=== PATIENT | male | born 1990 | race Caucasian/White ===

== ENCOUNTER → 2018-08-05 13:29 | Outpatient (CLI) | payer SELFPAY ==
[2018-08-03 11:43] VITALS: BMI 31.2
--- NOTE | 2018-08-05 13:37 | US_ITS ---
STUDY: SCROTUM ULTRASOUND REASON FOR EXAM: Male, 28 years old. Pea size left testicular mass. TECHNIQUE: Ultrasound evaluation of the scrotum was performed with color Doppler and static tse-scale imaging. COMPARISON: None. FINDINGS: RIGHT TESTICLE INTRATESTICULAR: There is a normal size of the right testicle. The right testicle measures 5 x 2.9 x 1.9 cm. There is a homogenous echotexture. There is normal arterial and normal venous vascularity. There is no demonstrated right testicular mass or cyst. EXTRATESTICULAR: The epididymis is normal in size. The epididymis head measures 2.6 x 1.2 x 1.1 cm. There is normal vascularity of the epididymis. There is a 0.4 x 0.3 x 0.3 cm epididymal head cyst. There is a small hydrocele. There is no demonstrated varicocele. There is no demonstrated extratesticular mass or cyst. LEFT TESTICLE INTRATESTICULAR: There is a normal size of the left testicle. The left testicle measures 4.6 x 3.1 x 2.2 cm. There is a homogenous echotexture. There is normal arterial and normal venous vascularity. There is no demonstrated left testicular mass or cyst. EXTRATESTICULAR: The epididymis is mildly prominent The epididymis head measures 1.3 x 1.5 x 1.3 cm. There is normal vascularity of the epididymis. There are 2 epididymal head cysts. One measures 4 x 4 x 3 mm. The other measures 2 x 3 x 3 mm. The patient states the palpable lump correlates to the left epididymal cysts. There is a small hydrocele. There is no demonstrated varicocele. There is no demonstrated extratesticular mass or cyst. US/Testicular with Arterial Flow IMPRESSION: 1. Slightly prominent left epididymis containing 2 epididymal head cysts. The epididymis is otherwise unremarkable. This area correlates with the palpable mass described by the patient. 2. Small right epididymal head cysts. 3. Small bilateral hydroceles. 4. Normal testicles. Electronically Signed: Jules Mcdaniel DO at 16:31 EST Tel [phone], Service support ,
--- OUTSIDE RECORDS SUMMARY | 2018-10-07 12:32 | XMS RPT_ITS ---
:1990 Author Organization OHIP Care Team Providers Name Role Phone Aaron Perez Attending Unavailable Primay Care Physicia, No Referring Unavailable Krystyna Parr Attending Unavailable Krystyna Parr Referring Unavailable Primay Care Physicia, No Primary Care Unavailable PROBLEMS PROBLEMS DATE TYPE CONDITION / CODE ATTENDING STATUS SOURCE 08/03/2018 Unknown J45.20 - Mild Aaron Perez Active Loan intermittent [facility] asthma, Hospital uncomplicated / Repository J45.20(ICD-10) 08/03/2018 Unknown N50.9 - Disorder of ChrisAaron Active Loan male genital Community organs, unspecified Hospital / N50.9(ICD-10) Repository PROCEDURES PROCEDURES No Procedure Records FoundRESULTS RESULTS TESTICULAR WITH Observed: 08/05/2018 Status: F Source: BERRY ARTERIAL FLOW 1:37 PM [facility] REPOSITORY [facility] Imaging Services [address] [place] [address] Testicular with Arterial Flow MR#: [id number] Acct: [id number] Name: SARANYA PARRA Rep #: [id number] : 1990 M 28 From: Jules Mcdaniel DO PCP: Care Physician, No Primary Status: REG CLI Study: Testicular with Arterial Flow Date of Exam: 08/05/18 Exam# [id number] Ordering Dr: Krystyna Parr TIMBER PACKER-C STUDY: SCROTUM ULTRASOUND REASON FOR EXAM: Male, 28 years old. Pea size left testicular mass. TECHNIQUE: Ultrasound evaluation of the scrotum was performed with color Doppler and static tse-scale imaging. COMPARISON: None. FINDINGS: RIGHT TESTICLE INTRATESTICULAR: There is a normal size of the right testicle. The right testicle measures 5 x 2.9 x 1.9 cm. There is a homogenous echotexture. There is normal arterial and normal venous vascularity. There is no demonstrated right testicular mass or cyst. EXTRATESTICULAR: The epididymis is normal in size. The epididymis head measures 2.6 x 1.2 x 1.1 cm. There is normal vascularity of the epididymis. There is a 0.4 x 0.3 x 0.3 cm epididymal head cyst. There is a small hydrocele. There is no demonstrated varicocele. There is no demonstrated extratesticular mass or cyst. LEFT TESTICLE INTRATESTICULAR: There is a normal size of the left testicle. The left testicle measures 4.6 x 3.1 x 2.2 cm. There is a homogenous echotexture. There is normal arterial and normal venous vascularity. There is no demonstrated left testicular mass or cyst. EXTRATESTICULAR: The epididymis is mildly prominent The epididymis head measures 1.3 x 1.5 x 1.3 cm. There is normal vascularity of the epididymis. There are 2 epididymal head cysts. One measures 4 x 4 x 3 mm. The other measures 2 x 3 x 3 mm. The patient states the palpable lump correlates to the left epididymal cysts. There is a small hydrocele. There is no demonstrated varicocele. There is no demonstrated extratesticular mass or cyst. US/Testicular with Arterial Flow IMPRESSION: 1. Slightly prominent left epididymis containing 2 epididymal head cysts. The epididymis is otherwise unremarkable. This area correlates with the palpable mass described by the patient. 2. Small right epididymal head cysts. 3. Small bilateral hydroceles. 4. Normal testicles. Electronically Signed: Jules Mcdaniel DO at 16:31 EST Tel [phone], Service support , CC: No Primary Care Physician; Krystyna Parr TIMBER PACKER Deputy City Clerk: Signed URGENT CARE VISIT Observed: 08/03/2018 Status: F Source: BERRY REPORT 1:59 PM [facility] REPOSITORY [facility] [address] [place] [address] [address] [place] [address] OFFICE VISIT Date of Service: 08/03/18 MR#: [id number] Acct: [id number] Name: SARANYA PARRA Rep #: [id number] : 1990 Provider: Aaron OLSON Age/Sex: 28/M Location: [facility] Status: Signed Intake Vital Signs08/03/18 Height 6 ft 4 in Intake Visit Reasons: NEEDS REFERRAL FOR UROLOGIST Certified Flex Endoscope Reprocessor Required: No Accompanied by: self Is patient in pain?: No Allergies No Known Allergies Allergy (Unverified 08/03/18 11:44) Medications albuterol sulfate HFA 90 mcg/actuation aerosol inhaler 1 puff INHALATION Q6H PRN 08/03/18 [History Confirmed 08/03/18] albuterol sulfate HFA 90 mcg/actuation aerosol inhaler 1 puff INHALATION Q6H PRN #18 g 08/03/18 [Rx Confirmed 08/03/18] PFSH Medical History Asthma (Acute) Surgical History History of shoulder surgery (Acute) Social History Smoking Status: Never smoker alcohol intake: current details: occasional HPI HPI Details: SARANYA PARRA, is a 28 M who presents to the office today for 2 separate concerns. The first of which patient is requesting a refill of his albuterol as he is running out and just recently moved to this area and does not have a PCP. He reports a history of well-controlled intermittent asthma and states that he has used his inhaler less than once per week in the past month. He denies any shortness of breath, difficulty breathing or chest pain at this time. He has had no fever, chills, sweats. His secondary concern is for a request to have a referral to urology as he is concerned for a left testicular lump for the last 2 weeks with minimal pain primarily to touch. He denies any previous injuries. He denies any hematuria, dysuria, difficulty urinating or penile drainage. No other associated symptoms or alleviating/aggravating factors. ROS Const Constitutional: No chills, fever(s), fatigue or abnormal sleep pattern Resp Respiratory: No shortness of breath or chest congestion Cardio Cardiology: No chest pain at rest, chest pain with exertion or shortness of breath Genitourinary Male: Positive for testicle lump (Left) and testicle pain (Pain only to palpation); no difficulty urinating, painful urination, blood in semen or scrotal swelling Skin Skin: No wounds or lesions Neuro Neurology: No behavioral changes or confusion Psych Psychiatric: No behavioral changes, No confusion, No abnormal sleep pattern Endo Endocrine: No fatigue Exam Const General: cooperative, healthy appearing [facility] Head: normocephalic, atraumatic Ears: hearing grossly normal bilaterally Nose: external nose normal Face and sinus: face symmetric, normal facial exam Mouth: oral mucosae normal Throat: posterior oropharynx normal Resp Effort AND Inspection: normal respiratory effort Auscultation: Bilateral: Clear to Auscultation Cardio Palpation: normal PMI Rate: regular rate Rhythm: regular rhythm General: bimanual renal exam normal bilaterally, No CVA tenderness External: other (Exam deferred at patient's request.) Skin General: no rashes or lesions noted Neuro General: alert, CN's II-XI intact bilaterally Psych Appearance: grossly normal Mental Status: mental status grossly normal Assessment AND Plan Problems 1. Lump in the testicle N50.9 Status Acute 2. Intermittent asthma, well controlled J45.20 Status Acute Plan Refill the patient's albuterol inhaler and advised him to follow-up with [facility] internal medicine. Patient given information for contact as well as pamphlet for [facility] for follow-up which should be scheduled in the next week. Patient also given referral to posterior urology for scrotal lump. Patient has been advised of potential red flags and when appropriate to report to the ED. Patient verbalized understanding and agreement with all the above. Orders Referrals: Medications New: albuterol sulfate HFA 90 mcg/actuation 1 puff Inhalation Q6H PRN 18 grams 0RF [id number] hospasm Coding Level of Care Code Off vis,new,level 3 Diagnoses Lump in the testicle N50.9 Intermittent asthma, well controlled J45.20 08/03/18 5147 <Electronically signed by Aaron OLSON> Date Aaron Childsaubrey Signature: Date (if applicable) CC: ALLERGIES ALLERGIES DATE TYPE / CODE NAME / CODE REACTION SEVERITY SOURCE 08/03/2018 Drug No Known Unknown [place] [facility] Allergy/4160 Allergies/F00 [facility] [address](SNOMED [id number](RXNOR Repository CT) M) ENCOUNTERS ENCOUNTERS ADMIT/DISCHARGE ACCOUNT ADMITTING ENCOUNTER LOCATION SOURCE NUMBER CLASS 08/05/2018 [id number] Ambulatory Loan Loan 9 [facility] ing:[place] Repository 08/03/2018/ [id number] Ambulatory BMSBuilding:B [place] 9 5 [facility] Repository PAYERS PAYERS ENCOUNTER GUARANTOR PAYER SUBSCRIBER SOURCE 08/05/2018 SARANYA Jones Primary Insurance:[facility] SARANYA [place] [id number] PACKAGE PLANPolicy [place] [facility] [id number] [id number] Repository [address]Zdk: (330) Date:2018-08-04 [phone] () 08/05/2018 Secondary NOT GIVENUNK [place] Insurance:SELF PAY [facility] Number: Effective Repository Date:2018-08-04 08/03/2018 SARANYA [id number] Primary NOT GIVENUNK [place] Insurance:SELF PAY [facility] [address]Nxi: (330) Number: Effective Repository [phone] () Date:2018-08-03
== END ==
PROVIDERS: Referring Provider Nurse Practitioner Adult Health; Visit Provider Nurse Practitioner Adult Health
DX: N50.89 Other specified disorders of the male genital organs (principal)
CPT/HCPCS: 76870; 93976

== ENCOUNTER → 2019-03-10 12:00 | Outpatient (CLI) | payer SELFPAY ==
[2018-08-03 11:43] VITALS: BMI 31.2
[2019-03-10 14:16] LABS: Erythrocyte Sedimentation Rate < 1 mm/hr (0-15)
[2019-03-10 14:17] LABS: Hematocrit 46.3 % (40-54); Hemoglobin 15.7 g/dL (13.0-16.5); Mean Corp Hgb Conc 33.9 g/dL (32-36); Mean Corpuscular Hgb 30.6 pg (27.0-32.0); Mean Corpuscular Volume 90.3 fL (80-94); Platelet Count 222 K/mm3 (150-450); RBC Distribution Width CV 11.9 % (11.6-14.6); RBC Distribution Width SD 39.4 fl (35.1-43.9); Red Blood Count 5.13 M/mm3 (4.6-6.2); White Blood Count 6.5 K/mm3 (4.4-11.0)
[2019-03-10 14:35] LABS: ALB/GLOB Ratio 1.1 RATIO (0.9-2.4); AST(SGOT) 19 U/L (15-37); Alanine Aminotransfer ALT/SGPT 29 U/L (16-61); Alkaline Phosphatase 63 U/L (45-117); Anion Gap 4 (5-15); BUN 15 mg/dL (7-18); BUN/Creat Ratio 15.2 RATIO (10-20); Calcium,Total 9.4 mg/dL (8.5-10.1); Chloride 105 mmol/L (98-107); Creatinine, Serum 0.99 mg/dL (0.70-1.30); EST Glomerular Filtration Rate 96 mL/min (>60); Est Glom Filt Rate - Afr Amer 116 mL/min (>60); Globulin 3.6 g/dL (2.2-4.2); Glucose 81 mg/dL (74-106); Protein, Total 7.6 g/dL (6.4-8.2); Sodium Level 139 mmol/L (136-145)
== END ==
PROVIDERS: Referring Provider Internal Medicine Gastroenterology; Visit Provider Internal Medicine Gastroenterology
DX: R19.7 Diarrhea, unspecified (principal)
CPT/HCPCS: 36415; 80053; 85027; 85652

== ENCOUNTER → 2020-05-30 15:07 | Outpatient (CLI) | payer MEDICARE, SELFPAY ==
[2020-05-30 13:26] VITALS: BMI 32.8
== END ==
PROVIDERS: Visit Provider Physician Assistant Surgical
DX: Z20.828 Contact with and (suspected) exposure to other viral communicable diseases (principal)
CPT/HCPCS: 87635; U0003

== ENCOUNTER → 2023-09-15 | Outpatient (CLI) | payer OTHER, SELFPAY ==
[2023-09-15 10:12] LABS: Absolute Neutrophil Count 3.1 X10^3/uL (2.0-7.7); Basophil# 0.03 X10^3/uL; Basophil% 0.5 % (0-1); Eosinophil# 0.17 X10^3/uL; Eosinophils% 3.1 % (0-5); Hematocrit 45.1 % (40-54); Hemoglobin 15.8 g/dL (13.0-16.5); Lymphocyte % 32.9 % (19-41); Mean Corpuscular Hgb 30.4 pg (27.0-32.0); Mean Corpuscular Volume 86.9 fL (80-94); Mean Platelet Vol. 10.5 fl (6.2-12.0); Monocyte% 7.3 % (0-10); NRBC Flagged by Analyzer 0 % (0-5); Neutrophil # 3.05 X10^3/uL (2.7-7.7); Neutrophil % 55.8 % (47-70); Platelet Count 229 K/mm3 (150-450); RBC Distribution Width CV 11.9 % (11.6-14.6); Red Blood Count 5.19 M/mm3 (4.6-6.2); White Blood Count 5.5 K/mm3 (4.4-11.0)
[2023-09-15 10:43] LABS: Hemoglobin A1c 5.3 % (3.8-5.6)
[2023-09-15 10:46] LABS: ALB/GLOB Ratio 1.1 RATIO (0.9-2.4); AST(SGOT) 24 U/L (15-37); Alanine Aminotransfer ALT/SGPT 32 U/L (16-61); Albumin, Serum 3.9 g/dL (3.2-5.0); Alkaline Phosphatase 56 U/L (45-117); Anion Gap 5 (5-15); BUN 19 mg/dL (7-18); Calcium,Total 9.1 mg/dL (8.5-10.1); Chloride 104 mmol/L (98-107); Cholesterol 156 mg/dL (200); EST Glomerular Filtration Rate 92 mL/min (>60); Est Glom Filt Rate - Afr Amer 112 mL/min (>60); Free T3 2.6 pg/mL (2.18-3.98); Globulin 3.4 g/dL (2.2-4.2); Glucose 100 mg/dL (74-106); High Density Lipoprotein 54 mg/dL; Potassium 4.4 mmol/L (3.5-5.1); Protein, Total 7.3 g/dL (6.4-8.2); Sodium Level 135 mmol/L (136-145); T4 Free Direct 0.97 ng/dL (0.76-1.46); Thyroid Stim Hormone (TSH) 1.34 uIU/mL (0.358-3.74); Triglycerides 74 mg/dL; Very Low Density Lipoprotein 15 mg/dL (5-40)
== END | disposition home or self-care (01) ==
LOC: LAB 09:45
PROVIDERS: PCP Internal Medicine; Referring Provider Internal Medicine; Visit Provider Internal Medicine
DX: Z00.00 Encounter for general adult medical examination without abnormal findings (principal); E55.9 Vitamin D deficiency, unspecified; F41.9 Anxiety disorder, unspecified; R73.9 Hyperglycemia, unspecified; Z13.220 Encounter for screening for lipoid disorders
CPT/HCPCS: 36415; 80053; 80061; 82306; 83036; 84439; 84443; 84481; 85025

== ENCOUNTER → 2023-10-31 | Outpatient (CLI) | payer OTHER, SELFPAY | END | disposition home or self-care (01) | LOC: SL 10:13 | PROVIDERS: PCP Internal Medicine; Referring Provider Internal Medicine; Visit Provider Internal Medicine | DX: G47.30 Sleep apnea, unspecified (principal) | CPT/HCPCS: 95806 ==

== ENCOUNTER → 2025-02-02 | Outpatient (CLI) | payer OTHER, SELFPAY ==
--- NOTE | 2025-02-02 10:43 | RAD_ITS ---
PROCEDURE: ELBOW MIN 3 VIEWS 02/02/2025 REASON FOR EXAM: PAIN TECHNIQUE: ELBOW MIN 3 VIEWS COMPARISON: None FINDINGS: Bones: There is no fracture or dislocation. Benign-appearing enthesophytes are noted at the triceps insertion at the olecranon. There is no visible effusion. Joints: Joint surfaces appear intact. Soft tissues: There is no focal soft tissue swelling. RAD/Elbow min 3 Views IMPRESSION: There is no fracture or dislocation. Benign-appearing enthesophytes are noted at the triceps insertion at the olecra non. Reading Location: [facility]
--- OUTSIDE RECORDS SUMMARY | 2025-02-02 19:20 | XMS RPT_ITS | CCD ---
Author Organization [facility] Informpending sale to [facility] Care Team Providers Care Rides Attendant Name Role Phone Dr. Vane Adams Primary Care Provider Dr. Vane Adams Attending Provider Theresa Fragoso Attending Unavailable Vane Adams Primary Care Unavailable Laverne [employer], Yuliya Attending Unavailable Vane Adams Primary Care Unavailable Vane Adams Referring Unavailable Theresa Fragoso Attending Unavailable Vane Adams Primary Care Unavailable Natan Fragosodison Attending Unavailable Vane Adams Primary Care Unavailable Fragoso Theresa Attending Unavailable Vane Adams Primary Care Unavailable Fouzia Theresa Attending Unavailable Vane Adams Primary Care Unavailable Fouzia Theresa Attending Unavailable Vane Adams Primary Care Unavailable Natan Fragosodison Attending Unavailable Vane Adams Primary Care Unavailable Allergies Allergy Classification Reported Allergen(s) Allergy Type Date of Onset Reaction(s) Facility (2 sources) Soy protein; Translations: [soy] Allergy to substance [address] [facility] (2 sources) Environmental Allergies: Uncoded; Translations: [Environmental Allergies: Uncoded] Allergy to substance 4 Shortness [address] [facility] Medications Current Medications Medication Drug Class(es) Dates Sig (Normalized) Sig (Original) [place] (Nk) (1 source) Start: 09-15-2023 [place] (Nk) A ctive September 15, 2023 12:00am Completed/Discontinued Medications Medication Drug Class(es) Dates Sig (Normalized) Sig (Original) [id number] 200 actuat albuterol 0.09 mg/actuat metered dose inhaler (2 sources) beta2-Adrenergic Agonist Start: 08-03-2018 End: 05-08-2022 take 1 puff(s) by inhalation every six hours Albuterol Sulfate Discontinued 1 PUFF INHALATION EVERY 6 HOURS August 03, 2018 12:00am May 08, 2022 8:03am Start: 08-03-2018 End: 05-08-2022 take 1 puff(s) by inhalation every six hours Albuterol Sulfate Discontinued 1 PUFF INHALATION EVERY 6 HOURS August 03, 2018 12:00am May 08, 2022 8:02am amoxicillin 875 mg / clavulanate 125 mg oral tablet (1 source) Penicillin-class Antibacterial Start: 05-14-2019 End: 05-25-2019 take 1 tablet by mouth every twelve hours Amoxicillin-Pot Clavulanate (Augmentin) 875-125 mg tablet Discontinued 1 TABLET PO Q12H 02 05May 13, 2019 11:00pm May 25, 2019 12:08am montelukast 10 mg oral tablet (1 source) Leukotriene Receptor Antagonist Start: 05-08-2022 End: 09-15-2023 take 1 tablet by mouth once daily Montelukast (Singulair) 10 mg tablet Discontinued 10 MG PO DAILY May 07, 2022 11:00pm September 15, 2023 9:08am omeprazole 20 mg delayed release oral capsule (1 source) Proton Pump Inhibitor Start: 08-05-2020 End: 05-08-2022 take 20 mg by mouth once daily Omeprazole Discontinued 20 MG PO DAILY August 05, 2020 12:00am May 08, 2022 8:03am sucralfate 1000 mg oral tablet (1 source) Aluminum Complex Start: 08-05-2020 End: 05-08-2022 take 1 tablet by mouth at bedtime Sucralfate (Carafate) 1 gram tablet Discontinued 1 GM PO before meals and at bedtime August 05, 2020 12:00am May 08, 2022 8:03am Problems Problem Classification Problem Date Documented Da te Episodic/Chronic Anxiety disorders (2 sources) Anxiety; Translations: [Anxiety disorder, unspecified] Onset: 11-23-2024 09-15-2023 Chronic Asthma (1 source) Intermittent asthma well controlled; Translations: [Mild intermittent asthma, uncomplicated] 08-03-2018 Chronic Attention-deficit, conduct, and disruptive behavior disorders (1 source) Attention-deficit hyperactivity disorder, combined type; Translations: [Attention-deficit hyperactivity disorder, combined type] Onset: 01-05-2025 Chronic Immunizations and screening for infectious disease (1 source) Contact with and (suspected) exposure to other viral communicable diseases; Translations: [Contact with or suspected exposure to other viral communicable disease] 05-30-2020 Episodic Other gastrointestinal disorders (1 source) Heartburn; Translations: [Heartburn] 05-08-2022 Episodic Other male genital disorders (1 source) Testicular mass; Translations: [Other specified disorders of the male genital organs] 08-03-2018 Episodic Other upper respiratory infections (2 sources) Acute pharyngitis; Translations: [Acute pharyngitis, unspecified] 05-14-2019 Episodic Residual codes; unclassified (1 source) Obstructive sleep apnea (adult) (pediatric); Translations: [Obstructive sleep apnea (adult) (pediatric)] Onset: 01-22-2024 Chronic Results Test Name Value Interpretation Reference Range Facility MR/BMS.BPon 01-05-2025 MR/BMS.[address], [address] [place] [address] OFFICE VISIT Date of Service: 01/05/25 MR#: [id number] Acct: [id number] Name: COLE SARMIENTO Rep #: [id number] : 1990 Provider: ASHLEY burns Age/Sex: 34/M Location: [facility].BP Status: Signed Intake Vital Signs 11/23/24 08:03 01/05/25 08:31 Height 6 ft 4 in 6 ft 4 in Weight: 260 lb 260 lb BMI 31.6 31.6 BP 115/70 118/69 Blood Pressure Location Lt brachial Lt brachial Position Sitting Sitting Respiration 16 16 Pulse 48 L 56 L Pulse Source Monitor Monitor BP Intake Visit Reasons: 6 wk FU Accompanied by: Self Allergies Environmental Allergies: Uncoded Allergy (Intermediate, Verified 01/05/25 08:35) Shortness of breath soy Allergy (Intermediate, Verified 01/05/25 08:35) Diarrhea Medications ???Medication ???Instructions ???Recorded ???Confirmed ???Type Oral appliance #1 ea 01/22/24 11/23/24 Rx buspirone 10 mg tablet 10 mg PO BID #60 tabs 01/05/25 Rx dextroamphetamine-am phetamine ER 20 mg PO QAM 30 days #30 caps 12/1301/05/25 Rx 20 mg 24hr capsule,extend release dextroamphetamine-am phetamine ER 20 mg PO QAM 30 days #30 caps 12/1301/05/25 Rx 20 mg 24hr capsule,extend release (Adderall XR) [facility] Medical History (Updated 11/23/24 @ 08:26 by ASHLEY Santillan) Seasonal allergies Diarrhea Asthma Surgical History History of colonoscopy History of shoulder surgery Social History adopted: No household members: spouse and family housing: house current occupational status: employed 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[employer] , [employer]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 Reports anxiety being marginally better with buspirone. Has been able to tell when he has forgotten that his anxiety has been worse. Denies panic attacks. Reports ADHD symptoms being well managed. Does feel sometimes the weekend are more difficult for him as he is out of his routine. Denies recent feelings of depression. Denies SI/HI. Sleep has been good and consistent. Is continuing to use the mouth guard. 6-7 hours per night on average. Appetite has been good. Has continued to exercise and is in basketball season currently. Previous similar episode: Yes Age of first onset of symptoms: 11-20 years Review of Systems Constitutional Reports: fatigue (recent mild GONZALEZ diagnosis); Denies: fever(s), chills or change in weight Eyes Denies: change in vision or blurry vision Ears, Nose, Mouth, Throat Denies: throat pain or neck pain Cardiovascular Denies: chest pain, palpitations or dyspnea Respiratory Denies: dyspnea or wheezing Gastrointestinal Denies: abdominal pain, nausea, vomiting, heartburn, diarrhea or constipation Genitourinary Denies: dysuria, urinary frequency or urinary urgency Musculoskeletal Denies: back pain or neck pain Integumentary/Breast Denies: rash, pruritus or erythema Neurological Denies: headache(s) Psychiatric Reports: anxiety; Denies: panic attacks, change in sleep pattern, hopelessness, loss of interest, paranoia, memory loss, difficulty concentrating, visual hallucinations, auditory hallucinations, suicidal ideation or homicidal ideation Endocrine Reports: fatigue (recent mild GONZALEZ diagnosis); Denies: polyuria or polydipsia Hematologic/Lymphati c Denies: easy bruising Allergic/Immunologic Denies: wheezing Exam Mental Status Exam - Psych Appearance casually dressed, adequately groomed and no apparent distress Attitude cooperative and calm Activity/Motor Behavior MSE activity/motor behavior finding no adventitious movements and appropriate eye contact Speech regular rate, regular volume and regular prosody Mood euythmic Affect full range Thought Process linear, logical and coherent Thought Content no delusions and no hallucinations Suicidal Ideation none Homicidal Ideation none Attention intact Concentration intact Sensorium/Orientatio n awake, alert and oriented x3 Memory/Cognition intact Insight good Judgement good Exam Constitutional Common normals (more content not included)... Normal [facility] MR/BMS.BPon 11-23-2024 MR/BMS.BP [facility], [address] [place] [address] OFFICE VISIT Date of Service: 11/23/24 MR#: [id number] Acct: [id number] Name: COLE SARMIENTO Rep #: [id number] : 1990 Provider: ASHLEY burns Age/Sex: 34/M Location: [facility].BP Status: Signed Intake Vital Signs 08/25/24 08:01 11/23/24 08:03 Height 6 ft 4 in 6 ft 4 in Weight: 260 lb BMI 31.6 BP 116/73 115/70 Blood Pressure Location Lt brachial Lt brachial Position Sitting Sitting Respiration 16 16 Pulse 53 L 48 L Pulse Source Monitor Monitor BP Intake Visit Reasons: 3 M FU Accompanied by: Self Allergies Environmental Allergies: Uncoded Allergy (Intermediate, Verified 11/23/24 08:05) Shortness of breath soy Allergy (Intermediate, Verified 11/23/24 08:05) Diarrhea Medications ???Medication ???Instructions ???Recorded ???Confirmed ???Type Oral appliance #1 ea 01/22/24 11/23/24 Rx buspirone 7.5 mg tablet 7.5 mg PO BID #60 tabs 11/23/24 Rx dextroamphetamine-am phetamine ER 20 mg PO QAM 30 days #30 caps 11/1111/23/24 Rx 20 mg 24hr capsule,extend release dextroamphetamine-am phetamine ER 20 mg PO QAM 30 days #30 caps 11/1111/23/24 Rx 20 mg 24hr capsule,extend release PFSH Medical History (Updated 11/23/24 @ 08:26 by ASHLEY Santillan) Seasonal allergies Diarrhea Asthma Surgical History History of colonoscopy History of shoulder surgery Social History adopted: No household members: spouse and family housing: house current occupational status: employed 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[employer] , [employer]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 Reports medication has been effective for ADHD symptoms but is currently still having feelings of anxiety that is unmanaged and is still presenting itself. Is feeling he is able to focus easily. Admits to anxiety worsening when he had another child, who has some health concerns. Reports he is doing physically well and is happy with his family. Does feel anxiety daily and like the world is going to collapse in on him. Denies panic attacks but does feel close to this. Denies current feelings of depression. Does report some loss of motivation but feels it is due to school slowing down. Denies changes in appetite. Denies changes in sleep and has been wearing a mouth guard. Does feel the mouth guard has been beneficial for him. Has been getting about 5-7 hours per night on average. Denies SI/HI. Previous similar episode: Yes Age of first onset of symptoms: 11-20 years Review of Systems Constitutional Reports: fatigue (recent mild GONZALEZ diagnosis); Denies: fever(s), chills or change in weight Eyes Denies: change in vision or blurry vision Ears, Nose, Mouth, Throat Denies: throat pain or neck pain Cardiovascular Denies: chest pain, palpitations or dyspnea Respiratory Denies: dyspnea or wheezing Gastrointestinal Denies: abdominal pain, nausea, vomiting, heartburn, diarrhea or constipation Genitourinary Denies: dysuria, urinary frequency or urinary urgency Musculoskeletal Denies: back pain or neck pain Integumentary/Breast Denies: rash, pruritus or erythema Neurological Denies: headache(s) Psychiatric Reports: anxiety; Denies: panic attacks, change in sleep pattern, hopelessness, loss of interest, paranoia, memory loss, difficulty concentrating, visual hallucinations, auditory hallucinations, suicidal ideation or homicidal ideation Endocrine Reports: fatigue (recent mild GONZALEZ diagnosis); Denies: polyuria or polydipsia Hematologic/Lymphati c Denies: easy bruising Allergic/Immunologic Denies: wheezing Exam Mental Status Exam - Psych Appearance casually dressed, adequately groomed and no apparent distress Attitude cooperative and calm Activity/Motor Behavior MSE activity/motor behavior finding no adventitious movements and appropriate eye contact Speech regular rate, regular volume and regular prosody Mood euythmic Affect full range Thought Process linear, logical and coherent Thought Content no delusions and no evangelista (more content not included)... Normal [facility] MR/BMS.BPon 08-25-2024 MR/BMS. [facility] [address] [place] [address], [address] [place] [id number] OFFICE VISIT Date of Service: 08/25/24 MR#: [id number] Acct: [id number] Name: COLE SARMIENTO Rep #: [id number] : 1990 Provider: ASHLEY burns Age/Sex: 34/M Location: [facility].BP Status: Signed Intake Vital Signs 06/30/24 10:02 08/25/24 08:01 Height 6 ft 4 in 6 ft 4 in BP 129/79 H 116/73 Blood Pressure Location Lt radial Lt brachial Position Sitting Sitting Respiration 16 16 Pulse 57 L 53 L Pulse Source Monitor Monitor BP Intake Visit Reasons: 8wfu Accompanied by: Self Allergies Environmental Allergies: Uncoded Allergy (Intermediate, Verified 08/25/24 08:04) Shortness of breath soy Allergy (Intermediate, Verified 08/25/24 08:04) Diarrhea Medications ???Medication ???Instructions ???Recorded ???Confirmed ???Type Oral appliance #1 ea 01/22/24 06/30/24 Rx dextroamphetamine-am phetamine ER 20 mg PO QAM 30 days #30 caps 08/1408/25/24 Rx 20 mg 24hr capsule,extend release dextroamphetamine-am phetamine ER 20 mg PO QAM 30 days #30 caps 08/1408/25/24 Rx 20 mg 24hr capsule,extend release dextroamphetamine-am phetamine ER 20 mg PO QAM 30 days #30 caps 08/1408/25/24 Rx 20 mg 24hr capsule,extend release PFSH Medical History Seasonal allergies Diarrhea Asthma Surgical History History of colonoscopy History of shoulder surgery Social History adopted: No household members: spouse and family housing: house current occupational status: employed 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[employer] , [employer]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 Does report he has moved to the couch due to his son not sleeping through the night and needing to focus at school and at basketball practice. Does report mood has been fine. Does report basketball season is coming to an end int eh next week. Denies SI/HI. Denies any increase in anxiety. Does feel the increase in ADHD medication has beneficial and has felt more consistent and more noticeable for him. Does report he is able to be more focused and present and able to have a full conversation without going off in his mind. Denies any difficulties falling asleep. Has replaced the Cpap with a mouth guard and is sleeping better with this than before. Denies any changes in appetite or in weight. Previous similar episode: Yes Age of first onset of symptoms: 11-20 years Review of Systems Constitutional Reports: fatigue (recent mild GONZALEZ diagnosis); Denies: fever(s), chills or change in weight Eyes Denies: change in vision or blurry vision Ears, Nose, Mouth, Throat Denies: throat pain or neck pain Cardiovascular Denies: chest pain, palpitations or dyspnea Respiratory Denies: dyspnea or wheezing Gastrointestinal Denies: abdominal pain, nausea, vomiting, heartburn, diarrhea or constipation Genitourinary Denies: dysuria, urinary frequency or urinary urgency Musculoskeletal Denies: back pain or neck pain Integumentary/Breast Denies: rash, pruritus or erythema Neurological Denies: headache(s) Psychiatric Denies: anxiety, memory loss, difficulty concentrating, visual hallucinations, auditory hallucinations, suicidal ideation or homicidal ideation Endocrine Reports: fatigue (recent mild GONZALEZ diagnosis); Denies: polyuria or polydipsia Hematologic/Lymphati c Denies: easy bruising Allergic/Immunologic Denies: wheezing Exam Mental Status Exam - Psych Appearance casually dressed, adequately groomed and no apparent distress Attitude cooperative and calm Activity/Motor Behavior MSE activity/motor behavior finding no adventitious movements and appropriate eye contact Speech regular rate, regular volume and regular prosody Mood euythmic Affect full range Thought Process linear, logical and coherent Thought Content no delusions and no hallucinations Suicidal Ideation none Homicidal Ideation none Attention intact Concentration intact Sensorium/Orientatio n awake, alert and oriented x3 Memory/Cognition intact Insight good Judgement good Exam (more content not included)... Normal [facility] MR/BMS.BPon 06-30-2024 MR/BMS.BP [facility] [address] [facility], [address] [place] [address] OFFICE VISIT Date of Service: 06/30/24 MR#: [id number] Acct: [id number] Name: COLE SARMIENTO Rep #: [id number] : 1990 Provider: ASHLEY burns Age/Sex: 33/M Location: [facility].BP Status: Signed Intake Vital Signs 04/14/24 08:03 06/30/24 10:02 Height 6 ft 4 in 6 ft 4 in BP 129/79 H Blood Pressure Location Lt radial Position Sitting Respiration 16 Pulse 57 L Pulse Source Monitor BP Intake Visit Reasons: FOLLOW UP Accompanied by: Self Allergies Environmental Allergies: Uncoded Allergy (Intermediate, Verified 06/30/24 10:06) Shortness of breath soy Allergy (Intermediate, Verified 06/30/24 10:06) Diarrhea Medications ???Medication ???Instructions ???Recorded ???Confirmed ???Type Oral appliance #1 ea 01/22/24 06/30/24 Rx dextroamphetamine-am phetamine ER 20 mg PO QAM 30 days #30 caps 06/30/24 06/30/24 Rx 20 mg 24hr capsule,extend release PFSH Medical History Seasonal allergies Diarrhea Asthma Surgical History History of colonoscopy History of shoulder surgery Social History adopted: No household members: spouse and family housing: house current occupational status: employed 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[employer] , [employer]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 Has recently had a child on May 31, a son named Aakash. Does feel the dextroamphetamine-am phetamine had been effective for his ADHD symptoms for the most part but is still experiencing some difficulties. Would like to see more improvement with focus on simple tasks that he needs to complete at work and home. Admits to motivation being good recently. Denies any side effects from the medication. Admits to feeling like he is able to be more present with his family and in the moment rather than his mind constantly racing. Denies noticing any anxiety or irritability with the medication. Denies panic attacks. Sleep has been fine, but he does have a at home. Has not been using his Cpap and has switched to a mouthguard. Has been eating well and still participating in the gym. Denies any feelings of depression. Denies SI/HI. Previous similar episode: Yes Age of first onset of symptoms: 11-20 years Review of Systems Constitutional Reports: fatigue (recent mild GONZALEZ diagnosis); Denies: fever(s), chills or change in weight Eyes Denies: change in vision or blurry vision Ears, Nose, Mouth, Throat Denies: throat pain or neck pain Cardiovascular Denies: chest pain, palpitations or dyspnea Respiratory Denies: dyspnea or wheezing Gastrointestinal Denies: abdominal pain, nausea, vomiting, heartburn, diarrhea or constipation Genitourinary Denies: dysuria, urinary frequency or urinary urgency Musculoskeletal Denies: back pain or neck pain Integumentary/Breast Denies: rash, pruritus or erythema Neurological Denies: headache(s) Psychiatric Reports: memory loss (forgetful and misplaces items) and difficulty concentrating; Denies: anxiety, visual hallucinations, auditory hallucinations, suicidal ideation or homicidal ideation Endocrine Reports: fatigue (recent mild GONZALEZ diagnosis); Denies: polyuria or polydipsia Hematologic/Lymphati c Denies: easy bruising Allergic/Immunologic Denies: wheezing Exam Mental Status Exam - Psych Appearance casually dressed, adequately groomed and no apparent distress Attitude cooperative and calm Activity/Motor Behavior MSE activity/motor behavior finding no adventitious movements and appropriate eye contact Speech regular rate, regular volume and regular prosody Mood euythmic Affect full range Thought Process linear, logical and coherent Thought Content no delusions and no hallucinations Suicidal Ideation none Homicidal Ideation none Attention impaired (per patient self report) Concentration impaired (per patient self report) Sensorium/Orientatio n awake, alert and oriented x3 Memory/Cognition impaired (per patient self report; has an issue with misplacing things) Insight good Judgement goo (more content not included)... Normal [facility] MR/BMS.BPon 04-14-2024 MR/BMS.BP [facility] [address] [facility], [address] [place] [address] OFFICE VISIT Date of Service: 04/14/24 MR#: [id number] Acct: [id number] Name: COLE SARMIENTO Rep #: [id number] : 1990 Provider: ASHLEY burns Age/Sex: 33/M Location: [facility]BP Status: Signed Intake Vital Signs 03/03/24 11:23 04/14/24 08:03 04/14/24 08:03 Height 6 ft 4 in 6 ft 4 in 6 ft 4 in Weight: 270 lb BMI 32.8 BP 147/69 H 126/76 H Blood Pressure Location Rt brachial Rt brachial Position Sitting Sitting Pulse 52 L 42 L Pulse Source Monitor Monitor BP Intake Visit Reasons: 6 wk FU Accompanied by: Self Is patient in pain?: No Allergies Environmental Allergies: Uncoded Allergy (Intermediate, Verified 03/03/24 11:23) Shortness of breath soy Allergy (Intermediate, Verified 03/03/24 11:23) Diarrhea Medications ???Medication ???Instructions ???Recorded ???Confirmed ???Type Oral appliance #1 ea 01/22/24 03/03/24 Rx dextroamphetamine-am phetamine ER 15 mg PO QAM 30 days #30 caps 04/14/24 04/14/24 Rx 15 mg 24hr capsule,extend release PFSH Medical History Seasonal allergies Diarrhea Asthma Surgical History History of colonoscopy History of shoulder surgery Social History adopted: No household members: spouse and family housing: house current occupational status: employed 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 , [employer]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 Reports his is having a baby in Mid May so they are preparing for that. Also is excited for the basketball season to start in a few weeks. Has been doing well with Adderall. Is feeling more focused and like he is able to concentrate more on things. Thought it was going to be a more overwhelming difference but feels it is very subtle of a change. Does feel he has noticed more of a difference compared to a non stimulant medication. Sleep has been good. Is still getting 6-7 hours per nights. Denies changes in appetite. Has lost 20 pounds since initiating care but reports being in a calorie deficit with Crossfit workouts. Denies feelings of depression. Denies feelings of irritability and denies anxiety. Denies SI/HI. Does feel functionality has improved since beginning the medication. Is less distracted. Has been doing better with focusing when playing with his daughter. Previous similar episode: Yes Age of first onset of symptoms: 11-20 years Review of Systems Constitutional Reports: fatigue (recent mild GONZALEZ diagnosis); Denies: fever(s), chills or change in weight Eyes Denies: change in vision or blurry vision Ears, Nose, Mouth, Throat Denies: throat pain or neck pain Cardiovascular Denies: chest pain, palpitations or dyspnea Respiratory Denies: dyspnea or wheezing Gastrointestinal Denies: abdominal pain, nausea, vomiting, heartburn, diarrhea or constipation Genitourinary Denies: dysuria, urinary frequency or urinary urgency Musculoskeletal Denies: back pain or neck pain Integumentary/Breast Denies: rash, pruritus or erythema Neurological Denies: headache(s) Psychiatric Reports: anxiety, memory loss (forgetful and misplaces items) and difficulty concentrating; Denies: visual hallucinations, auditory hallucinations, suicidal ideation or homicidal ideation Endocrine Reports: fatigue (recent mild GONZALEZ diagnosis); Denies: polyuria or polydipsia Hematologic/Lymphati c Denies: easy bruising Allergic/Immunologic Denies: wheezing Assessment Plan Assessment Plan (1) ADHD (attention deficit hyperactivity disorder), combined type: Plan: - Increase dextroamphetamine-am phetamine to 15mg ER daily - Patient was informed about stimulant side effects including but not limited to tics, decrease in appetite, anxiety psychosis, increase in heart rate and BP, arrhythmia and stroke.??? Patient was informed about clinic's control substance policy which includes but not limited to random UDS, no early refills, no authorization for lost script or pills and not to use illicit substance and alcohol which patient agreed to and verbaliz (more content not included)... Normal [facility] MR/BMS.BPon 03-03-2024 MR/BMS.BP [facility] [address] [facility] [facility], [address] [place] [address] OFFICE VISIT Date of Service: 03/03/24 MR#: [id number] Acct: [id number] Name: COLE SARMIENTO Rep #: [id number] : 1990 Provider: ASHLEY burns Age/Sex: 33/M Location: [facility].BP Status: Signed Intake Vital Signs 02/03/24 07:34 03/03/24 11:18 03/03/24 11:23 Height 6 ft 4 in 6 ft 4 in 6 ft 4 in BP 116/72 147/69 H Blood Pressure Location Rt brachial Rt brachial Position Sitting Sitting Pulse 56 L 52 L Pulse Source Monitor Monitor BP Intake Visit Reasons: 4wfu Fire Official Required: No Accompanied by: Self Is patient in pain?: No Allergies Environmental Allergies: Uncoded Allergy (Intermediate, Verified 03/03/24 11:23) Shortness of breath soy Allergy (Intermediate, Verified 03/03/24 11:23) Diarrhea Medications ???Medication ???Instructions ???Recorded ???Confirmed ???Type Oral appliance #1 ea 01/22/24 03/03/24 Rx dextroamphetamine-am phetamine ER 10 mg PO QAM 30 days #30 caps 03/03/24 03/03/24 Rx 10 mg 24hr capsule,extend release Current gender identity: male Nurse's Note: Presents to the office today for follow up. 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) leisure activities: sports and exercise history of recent travel: No sexually active: Yes Smoking Status: Never smoker alcohol intake: current details: occasional diet: other well-balanced diet: about half the time caffeine: Yes eating out: 1-3 times/week what type of physical activity do you participate in: other details: crossfit frequency: 5-6 times per week geovanny/spiritism: Lutheran seatbelt use: always do you feel safe at home: Yes HPI History of Present Illness Chief complaint: inattention HPI: Pedro Sarmiento is a 33 year old male patient presenting today for a follow up evaluation. Does report that the increase has beneficial but reports it is not as long lasting throughout the day that he is hopeful for. Feels that by lunchtime he is struggling with focus and inattention and feeling he is zoning. Mood has been good. Denies noticing any depressive symptoms. Is going through some stuff with his 's and some minor complications but is doing well. Is working on getting a mouth guard because the Cpap has not been beneficial for him. Sleep has been more of a struggle and low energy due to this. Is getting 6-7 hours throughout the night but it is broken sleep. Never feels well rested. Denies any issues with insomnia related to the medication. No changes in appetite. Patient recently returned from a family vacation to [place] [place] and had a good time while he was there. Previous similar episode: Yes Age of first onset of symptoms: 11-20 years Review of Systems Constitutional Reports: fatigue (recent mild GONZALEZ diagnosis); Denies: fever(s), chills or change in weight Eyes Denies: change in vision or blurry vision Ears, Nose, Mouth, Throat Denies: throat pain or neck pain Cardiovascular Denies: chest pain, palpitations or dyspnea Respiratory Denies: dyspnea or wheezing Gastrointestinal Denies: abdominal pain, nausea, vomiting, heartburn, diarrhea or constipation Genitourinary Denies: dysuria, urinary frequency or urinary urgency Musculoskeletal Denies: back pain or neck pain Integumentary/Breast Denies: rash, pruritus or erythema Neurological Denies: headache(s) Psychiatric Reports: anxiety, memory loss (forgetful and misplaces items) and difficulty concentrating; Denies: visual hallucinations, auditory hallucinations, suicidal ideation or homicidal ideation Endocrine Reports: fatigue (recent mild GONZALEZ diagnosis); Denies: polyuria or polydipsia Hematologic/Lymphati c Denies: easy bruising Allergic/Immunologic Denies: wheezing Exam Mental Status Exam - Psych Appearance casually dressed, adequately groomed and no apparent distress Attitude cooperative and calm Activity/Motor Behavior MSE activity/motor behavior finding no adventitious movements and appropriate eye contact Speech regular rate, regular volume and regular prosody Mood euythmic Affect full range Thought Process linear, logical and coherent Thought Content no delusions and no hallucinations Suicidal Ideation none Homicidal Ideation none Attention impaired (per patient self report) Concentration impaired (per patient self report) Sens (more content not included)... Normal [facility] MR/BMS.BPon 02-03-2024 MR/BMS.BP [facility] [address] [place] [address], [address] [place] [address] OFFICE VISIT Date of Service: 02/03/24 MR#: [id number] Acct: [id number] Name: COLE SARMIENTO Rep #: [id number] : 1990 Provider: ASHLEY burns Age/Sex: 33/M Location: [facility].BP Status: Signed Intake Vital Signs 12/23/23 07:34 01/22/24 08:11 02/03/24 07:32 02/03/24 07:34 Height 6 ft 4 in 6 ft 4 in 6 ft 4 in 6 ft 4 in Weight: 274 lb BMI 33.3 BP 136/74 H 123/82 H 116/72 Blood Pressure Location Rt brachial Lt brachial Rt brachial Position Sitting Sitting Sitting Respiration 16 Pulse 56 L 59 L 56 L Pulse Source Monitor Monitor Monitor Temp 96.4 F L Temperature Source Temporal Artery Pulse Oximetry (%) 98 Oxygen Delivery Method room air BP Intake Visit Reasons: 6 wk FU Fire Official Required: No Accompanied by: Self Is patient in pain?: No Allergies Environmental Allergies: Uncoded Allergy (Intermediate, Verified 02/03/24 07:34) Shortness of breath soy Allergy (Intermediate, Verified 02/03/24 07:34) Diarrhea Medications ???Medication ???Instructions ???Recorded ???Confirmed ???Type Oral appliance #1 ea 01/22/24 01/22/24 Rx lisdexamfetamine 40 mg capsule 40 mg PO QAM 30 days #30 caps 02/03/24 02/03/24 Rx Current gender identity: male Nurse's Note: Presents to the office today for follow up. 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 Feels the lisdexamfetamine has been much more effective than the atomoxetine was. Feels like the medication is wearing off much faster than he would like. Feels it is wearing off about 8 hours after he takes it. Denies noticing any side effects. Denies any issues sleeping or with appetite. Feels he is getting the best sleep he can with GONZALEZ. Does not like to use to Cpap as the mask does not work well for him and is planning to meet with a dentist to look into getting a mouth guard fro GONZALEZ. Is feeling more alert, more focused, and able to pay attention to things more. He feels more ready to take on the day and feels he is more motivated and that tasks are easier to get into and stay on task. Feels this is affecting his career in a positive way. Plan is for a vacation this Friday coming up and going to [place] for 1 week. Denies SI/HI. Mood has been good. Previous similar episode: Yes Age of first onset of symptoms: 11-20 years Review of Systems Constitutional Reports: fatigue (recent mild GONZALEZ diagnosis); Denies: fever(s), chills or change in weight Eyes Denies: change in vision or blurry vision Ears, Nose, Mouth, Throat Denies: throat pain or neck pain Cardiovascular Denies: chest pain, palpitations or dyspnea Respiratory Denies: dyspnea or wheezing Gastrointestinal Denies: abdominal pain, nausea, vomiting, heartburn, diarrhea or constipation Genitourinary Denies: dysuria, urinary frequency or urinary urgency Musculoskeletal Denies: back pain or neck pain Integumentary/Breast Denies: rash, pruritus or erythema Neurological Denies: headache(s) Psychiatric Reports: anxiety, memory loss (forgetful and misplaces items) and difficulty concentrating; Denies: visual hallucinations, auditory hallucinations, suicidal ideation or homicidal ideation Endocrine Reports: fatigue (recent mild GONZALEZ diagnosis); Denies: polyuria or polydipsia Hematologic/Lymphati c Denies: easy bruising Allergic/Immunologic Denies: wheezing Exam Mental Status Exam - Psych Appearance casually dressed, adequately groomed and no apparent distress Attitude cooperative and calm Activity/Motor Behavior MSE activity/motor behavior finding no adventitious movements and appropriate eye contact Speech regular rate, regular volume and regular prosody Mood euythmic Affect full (more content not included)... Normal [facility] Pulmonary Visit Reporton Pulmonary Visit Report [facility] [address] [place] [address] OFFICE VISIT Date of Service: 01/22/24 MR#: [id number] Acct: [id number] Name: COLE SARMIENTO Rep #: [id number] : 1990 Provider: ASHLEY Galloway Age/Sex: 33/M Location: [facility].PMW Status: Signed Assessment and Plan Assessment and Plan (1) Obstructive sleep apnea: Status: Acute Comment: AHI 5.5 Plan: New. Lengthy discussion about the pathophysiology of obstructive sleep apnea. We discussed the risks of untreated sleep apnea as well as the benefits. The patient reports that he was ordered an AutoPap and picked it up earlier this week. He was initially prescribed a nasal mask and has been struggling to be compliant. He is only been able to keep it on for approximately an hour a few nights. Thus far, he is not pleased with his PAP machine. He is willing to try an oral hybrid mask. He is aware that initial goal will be to wear PAP at least 4 hours nightly. Ultimately, it should be worn any time spent sleeping. I have encouraged the patient to call the office with any difficulties acclimating to PAP therapy. Follow up in the office in 3 months, at which time I anticipate the patient will be on PAP therapy for 4-6 weeks. He would also like to consider alternatives, such as an oral appliance. Referral placed to a local dentist to evaluate the appropriateness for this. Orders: Referrals Dental G47.33 - Obstructive sleep apnea (adult) (pediatric) Medications: New [Oral appliance] As directed 1 ea 0RF G47.33 - Obstructive sleep apnea (adult) (pediatric) Plan Details Follow Up: 3 Months ([facility]) HPI Sleep concern Chief Complaint: Test results HPI Comments Details: This patient presents to the office today for initial consultation regarding concern for obstructive sleep apnea. He is ambulatory. He does not believe that he snores. However, he admits that his has not complained of snoring but she is a heavy sleeper and may not hear him. He does report daytime hypersomnia. He naps on Friday if possible. He is not feeling rested when he wakes up. He denies nodding off to sleep unintentionally. He is not having difficulty with dry mouth. He is not having morning headaches. He does have 1-2 episodes of nocturia most nights. 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 The patient reports he was diagnosed with asthma as a child. He was treated with Advair as a child. He does have an albuterol rescue inhaler but has not used it in 2 or 3 years. He believes he possibly has seen a cafeteria supervisor in the past. He is a lifelong never smoker. Past medical family history significant for: Mother has heart disease with stents. Father has sleep apnea. Brother has autism, 2 sisters both have good health. The patient has 1 child and [address] No health concerns there. He denies any difficulty with shortness of breath. He denies any cough, sputum production or hemoptysis. He denies any wheezing, chest tightness, chest pain or palpitations. He also denies any fever, chills or body aches. Test results personally reviewed with the patient: Unattended sleep study completed on October 31, 2023. Overall AHI is 5.5 events per hour. Diagnosis is mild obstructive sleep apnea. Recommendation if symptomatic, consider treatment options including dental appliance, positional therapy or CPAP therapy with auto adjusting pressures. Also could consider titration study. Intake Vital Signs 09/15/23 09:05 12/23/23 07:34 01/22/24 08:11 Height 6 ft 4 in 6 ft 4 in 6 ft 4 in Weight: 274 lb BMI 33.3 BP 123/82 H Blood Pressure Location Lt brachial Position Sitting Respiration 16 Pulse 59 L Pulse Source Monitor Temp 96.4 F L Temperature Source Temporal Artery Pulse Oximetry (%) 98 Oxygen Delivery Method room air Intake Visit Reasons: Sleep problems Chief Complaint: GONZALEZ Fire Official Required: No DME Vendor: [employer] Accompanied by: Self Is patient in pain?: No Allergies Environmental Allergies: Uncoded Allergy (Intermediate, Verified 01/22/24 09:03) Shortness of breath soy Allergy (Intermediate, Verified 01/22/24 09:03) Diarrhea Medications ???Medication ???Instructions ???Recorded ???Confirmed ???Type lisdexamfetamine 30 mg capsule 30 mg PO QAM 30 days #30 caps 12/24/23 01/22/24 Rx Oral appliance #1 ea 01/22/24 01/22/24 Rx PFSH Medical History Seasonal allergies Diarrhea Asthma Surgical History History of colonoscopy History of shoulder surgery Social History (Reviewed 01/22/24 (more content not included)... Normal [facility] Absolute lymphocyte countOrd ered By: Vane Ruanochner on 09-15-2023 Lymphocytes Auto (Unsp spec) [#/Vol] 1.80 10*3/uL 0.83-4.[address] [facility] Automated lymphocyte count a s percentage of total leukocytesOrdered By: Vane Adams on 09-15-2023 Lymphocytes/100 WBC Auto (Unsp spec) 32.9 % 19-[address] [facility] Basophil percentageOrdered B y: Vane Adams on 09-15-2023 Basophils/100 WBC (Bld) 0.5 % 0-1 [facility] Bilirubin [Mass/Vol] 0.90 mg/dL 0.20-1.00 [facility] Comment on above: For patients on eltr ombopag therapy, use of Dimension [place] TBIL is not recommended. Chloride [Moles/Vol] 104 mmol/L 98-107 [facility] Cholesterol [Mass/Vol] 156 mg/dL <200 [facility] Comment on above: <200 mg/dL Desirable 200-240 mg/dL Borderline >240 mg/dL High Risk Eosinophils/100 WBC (Bld) 3.1 % 0-[address] [facility] Glucose [Mass/Vol] 100 mg/dL 74-106 [facility] Comment on above: Fasting Glucose resu lt from 100 to 125 mg/dL suggests IMPAIRED HOMEOSTASIS per A.D.A. criteria. Hemoglobin (Bld) [Mass/Vol] 15.8 g/dL 13.0-16.[address] [facility] Monocytes/100 WBC (Bld) 7.3 % 0-10 [facility] Neutrophils (Bld) [#/Vol] 3.1 10*3/uL 2.0-7.[address] [facility] Neutrophils/100 WBC (Bld) 55.8 % 47-[address] [facility] Potassium [Moles/Vol] 4.4 mmol/L 3.5-5.1 [facility] Comment on above: Slight Hemolysis, Re sult may be falsely increased. Protein [Mass/Vol] 7.3 g/dL 6.4-8.2 [facility] Sodium [Moles/Vol] 135 mmol/L 136-145 [facility] Triglyceride [Mass/Vol] 74 mg/dL <199 [facility] Comment on above: The drugs N-Acetylcy steine and Metamizole may falsely depress this assay.Serum Triglycerides Reference Interval Normal <150 mg/dL Borderline high 150 - 199 mg/dL High 200 - 499 mg/dL Very High > or = 500 mg/dL WBC (Bld) [#/Vol] 5.5 10*3/uL 4.4-11.0 [facility] Determination of erythrocyte mean corpuscular volume (MCV)Ordered By: Vane Adams on 09-15-2023 MCV (RBC) [Entitic vol] 86.9 fL 80-94 [facility] Erythrocyte distribution wid th ratioOrdered By: Vane Adams on 09-15-2023 Erythrocyte distribution width (RBC) [Ratio] 11.9 % 11.6-14.[address] [facility] Erythrocyte distribution wid th standard deviationOrdered By: Vane Adams on 09-15-2023 Erythrocyte distribution width (RBC) [Entitic vol] 38.0 fL 35.1-43.[address] [facility] Hematocrit Auto (Bld) [Volum e fraction]Ordered By: Vane Adams on 09-15-2023 Hematocrit (Bld) [Volume fraction] 45.1 % 40-[address] [facility] Immature granulocytes/100 WB C Auto (Bld)Ordered By: Vane Adams on 09-15-2023 Immature granulocytes/100 WBC (Bld) 0.400 % 0.0-0.[address] [facility] Comment on above: IG% - Immature Granu locytes (promyelocytes, myelocytes and metamyelocytes) > 1% indicates that a LEFT SHIFT is Present. Laboratory - Chemistry and C hemistry - challengeOrdered By: Vane Adams on 09-15-2023 Albumin/Globulin [Mass ratio] 1.1 {ratio} 0.9-2.[address] [facility] ALP [Catalytic activity/Vol] 56 U/L 45-[address] [facility] ALT [Catalytic activity/Vol] 32 U/L 16-[address] [facility] Cholesterol in HDL [Mass/Vol] 54 mg/dL >[address] [facility] Comment on above: The drugs N-Acetylcy steine and Metamizole may falsely depress this assay. Reference Range HDL <40 mg/dL Low HDL Cholesterol HDL >or= 60 mg/dL High HDL Cholesterol Cholesterol in LDL [Mass/Vol] 87 mg/dL 0-[address] [facility] CO2 [Moles/Vol] 26.0 mmol/L 21.0-32.[address] [facility] Globulin (S) [Mass/Vol] 3.4 g/dL 2.2-4.2 [facility] Urea nitrogen/Creatinine [Mass ratio] 19.0 mg/mg 10-[address] [facility] Laboratory - Hematology and Cell countsOrdered By: Vane Adams on 09-15-2023 MCH (RBC) [Entitic mass] 30.4 pg 27.0-32.[address] [facility] MCHC (RBC) [Mass/Vol] 35.0 g/dL 32-36 [facility] Nucleated RBC/100 WBC (Bld) [Ratio] 0 % 0-[address] [facility] Platelet mean volume (Bld) [Entitic vol] 10.5 fL 6.2-12.[address] [facility] Platelets (Bld) [#/Vol] 229 10*3/uL 150-[address] [facility] No Panel InformationOrdered By: Vane Adams on 09-15-2023 Estimated GFR (MDRD) Amer 112 mL/min >[address] [facility] Comment on above: GFR Calc Estimated GFR (MDRD) Non-Af Amer 92 mL/min >[address] [facility] Comment on above: Non- GFR Calc Free Triiodothyronine (T3) pg/dL 2.6 pg/mL 2.18-3.[address] [facility] Vitamin D 25-Hydroxy 24.0 ng/mL [facility] Comment on above: Vitamin D 25(OH) Sta tus Range Deficiency <20 ng/mL (50nmol/L) Insufficiency 20 - 30 ng/mL (50 - 75 nmol/L) Sufficiency 30 - 100 ng/mL (75 - 250 nmol/L) Toxicity >100 ng/mL (>250 nmol/L) VLDL Cholesterol 15 mg/dL 5-[address] [facility] RBC Auto (Bld) [#/Vol]Ordere d By: Vane Adams on 09-15-2023 RBC (Bld) [#/Vol] 5.19 10*6/uL 4.6-6.2 [facility] Serum or plasma calcium madelin urement (mass/volume)Ordered By: Vane Adams on 09-15-2023 Calcium [Mass/Vol] 9.1 mg/dL 8.5-10.1 [facility] Serum or plasma creatinine m easurement (mass/volume)Ordered By: Vane Adams on 09-15-2023 Creatinine [Mass/Vol] 1.00 mg/dL 0.70-1.30 [facility] Comment on above: The validity of the calculated GFR & GFRAA in patients over 70 years has not been determined. Clinical correlation is essential. Serum or plasma thyroid stim ulating hormone (TSH) measurement (units/volume)Ordered By: Vane Adams on 09-15-2023 TSH Qn 1.34 uIU/mL 0.358-3.[address] [facility] Serum or plasma urea nitroge n measurement (mass/volume)Ordered By: Vane Adams on 09-15-2023 Urea nitrogen [Mass/Vol] 19 mg/dL 7-[address] [facility] Thin prep Papanicolaou smear with manual screeningOrdered By: Vane Adams on 09-15-2023 Thin prep Papanicolaou smear with manual screening 3.9 g/dL 3.2-5.[address] [facility] Thin prep Papanicolaou smear with manual screening 24 U/L 15-[address] [facility] Comment on above: Slight Hemolysis, Re sult may be falsely increased. Thin prep Papanicolaou smear with manual screening 5 5-[address] [facility] Thin prep Papanicolaou smear with manual screening 0.97 ng/dL 0.76-1.[address] [facility] Whole blood hemoglobin A1c/t otal hemoglobin ratio (mass fraction)Ordered By: Vane Adams on 09-15-2023 HbA1c (Bld) [Mass fraction] 5.3 % 3.8-5.[address] [facility] Comment on above: Normal < 5.7 % Predi abetic 5.7 - 6.4 % Diabetic >or= 6.5 % Please note range changes. Vital Signs Date Time Vital Sign Value Performing Clinician Faci lity 09-15-2023 09:05-0500 Body height 193.[address] Vane Adams Work Phone: [facility] 09-15-2023 09:05-0500 Body mass index (BMI) [Ratio] 34.5 kg/m2 Dr. Vane Adams Work Phone: [facility] 09-15-2023 09:05-0500 Body temperature 98.2 [degF] Dr. Vane Adams Work Phone: [facility] 09-15-2023 09:05-0500 Body weight 128.[address] Vane Adams Work Phone: [facility] 09-15-2023 09:05-0500 Diastolic blood pressure 82 mm[Hg] Dr. Vane Adams Work Phone: [facility] 09-15-2023 09:05-0500 Heart rate 51 /min Dr. Vane Adams Work Phone: [facility] 09-15-2023 09:05-0500 SaO2% (BldA) [Mass fraction] 92 % Dr. Vane Adams Work Phone: [facility] 09-15-2023 09:05-0500 Systolic blood pressure 121 mm[Hg] Dr. Vane Adams Work Phone: [facility] Encounters Encounter Date Encounter Type Care Provider Facility Start: 01-05-2025 End: 01-05-2025 ambulatory [facility] Start: 11-23-2024 End: 11-23-2024 ambulatory [facility] Start: 08-25-2024 End: 08-25-2024 ambulatory [facility] Start: 06-30-2024 End: 06-30-2024 ambulatory [facility] Start: 04-14-2024 End: 04-14-2024 ambulatory [facility] Start: 03-03-2024 End: 03-03-2024 ambulatory [facility] Start: 02-03-2024 End: 02-03-2024 ambulatory Theresa Fragoso [facility] Start: 01-22-2024 End: 01-22-2024 ambulatory Yuliya Galloway [employer] [facility] Start: 09-15-2023 End: 09-15-[address] Vane Adams Work Phone: [facility] Work Phone: Start: 09-15-2023 End: 09-15-2023 Encounter for general adult medical examination without abnormal findings Dr. Vane Adams Work Phone: [facility] Start: 09-15-2023 End: 09-15-[address] Vane Adams Work Phone: [facility] Work Phone: Start: 05-08-[address] Vane Adams Work Phone: [facility] Payers Date Payer Category Payer Self-pay [id number] 2023 Unknown [id number] Private Health Insurance [facility] *[employer] [id number] Unknown MED [employer] TPA [id number] Unknown R DUTCH [id number] Unknown [id number] 62 Unknown [id number] 62 Unknown [id number] 62 Unknown [id number] 62 Unknown [id number] 62 Unknown [id number] 62 Unknown [id number] 62 Unknown [id number] 62 Social History Date Type Detail Facility Start: 09-15-2023 Tobacco smoking stat us SCIS Unknown if ever smoked [facility] Start: 1990 Sex Assigned At Male [facility] Evaluation note Note Date & Type Note Facility Evaluation note Diagnosis Onset Date Encounter for wellness examination in adult acute [facility] Work Phone: Chief Complaint and Reason for Visit Chief Complaint Annual/Physical EORDER Reason for Visit Encounter for wellne ss examination in adult Summary Purpose Family History No Family History Records Found Advance Directives No Advanced Directives Records Found Additional Source Comments Care Teams (unrecognized sec tion and content) Team Status: Active Member Role Status Dates No Primary Care Physician Family Provider Active Dr. Vane Adams MD Primary Care Provider Active Team Status: Inactive Member Role Status Dates Dr. Vane Adams MD Primary Care Provider, Attendi ng Provider Active Team Status: Inactive Member Role Status Dates Dr. Vane Adams MD Primary Care Pro vider, Attending Provider, Referring Provider Active Goals (unrecognized section and content) Goals may be documented in a n alternate section (unrecognized sect ion and content) No Status Records Found INFORMATION SOURCE (unrecogn ized section and content) DATE CREATED AUTHOR 01/05/2025 [facility] FOR RECORDS PERTAINING TO PATIENTS WHO ARE OR HAVE BEEN ENROLLED IN A CHEMICAL DEPENDENCY/SUBSTANCEABUSE PROGRAM, SOME INFORMATION MAY BE OMITTED. This clinical summary was aggregated from multiple sources. Caution should be exercised in using it in the provision of clinical care. This summary normalizes information from multiple sources, and as a consequence, information in this document may materially change the coding, format and clinical context of patient data. In addition, data may be omitted in some cases. CLINICAL DECISIONS SHOULD BE BASED ON THE PRIMARY CLINICAL RECORDS. [facility] provides no warranty or guarantee of the accuracy or completeness of information in this document.
== END | disposition home or self-care (01) ==
LOC: MTRAD 10:43
PROVIDERS: PCP Internal Medicine; Referring Provider Physician Assistant; Visit Provider Physician Assistant
DX: R52 Pain, unspecified (principal)
CPT/HCPCS: 73080